=== PATIENT | male | born 1955 | race Caucasian/White ===

== ENCOUNTER 2018-02-10 21:17 | Observation (INO) | payer BC ==
[~2018-02-10] VITALS: Ht 180.3 cm; Wt 109.6 kg
[~2018-02-10 21:17] MED LIST: ALLERGY MED PO; BENADRYL25 MG PO; IBUPROFEN800 MG PO; KEFLEX500 MG PO; ULTRAM50 MG PO; VICODIN 5-3001 EACH PO
[2018-02-10 21:56] LABS: HEMATOCRIT 40.7 % (38.0-50.0); HEMOGLOBIN 13.8 G/DL (12.5-16.6); MCH 29.5 PG (29.0-34.0); MCHC 33.9 G/DL (30.0-36.0); PLATELET COUNT 270 K/uL (156-360); RBC DIS.WIDTH-CV 13.7 % (11.8-14.6); RED BLOOD COUNT 4.68 M/uL (4.00-5.50); WHITE BLOOD COUNT 8.5 K/uL (4.1-10.2)
[2018-02-10 22:05] LABS: APPEARANCE CLEAR ((CLEAR)); BILIRUBIN NEGATIVE; BLOOD SMALL; COLOR YELLOW ((YELLOW)); GLUCOSE (STRIP) NEGATIVE; KETONES NEGATIVE; LEUKOCYTES NEGATIVE; NITRITE NEGATIVE; PROTEIN (STRIP) NEGATIVE; SPECIFIC GRAVITY 1.019 (1.000-1.030); UROBILINOGEN 0.2 MG/DL (0.2-1.0)
[2018-02-10 22:09] LABS: BACTERIA NONE SEEN /HPF; EPITHELIAL CELLS NONE SEEN /HPF; HYALINE CASTS 0-5 /LPF; MUCUS TRACE /LPF; RED BLOOD CELLS 0-5 /HPF (0-5); UCUL ADDED? NO; WHITE BLOOD CELLS 0-5 /HPF (0-5)
[2018-02-10 22:10] LABS: CHLORIDE 106 mEq/L (99-109); POTASSIUM 4.2 mEq/L (3.7-5.4); SODIUM 139 mEq/L (136-147)
[2018-02-10 22:12] LABS: GLUCOSE 118 mg/dL (70-99)
[2018-02-10 22:15] LABS: CREATININE 1.6 mg/dL (0.6-1.3); GFR ESTIMATE (CALCULATED) 47 mL/min/ (58.99-99999)
[2018-02-10 22:16] LABS: UREA NITROGEN (BUN) 23 mg/dL (9-23)
[2018-02-11 03:55] VITALS: BP 142/77
[2018-02-11 05:35] LABS: HEMATOCRIT 38.9 % (38.0-50.0); HEMOGLOBIN 12.8 G/DL (12.5-16.6); MCH 29.1 PG (29.0-34.0); MCHC 32.9 G/DL (30.0-36.0); MCV 88.4 FL (86-99); PLATELET COUNT 256 K/uL (156-360); RBC DIS.WIDTH-CV 13.9 % (11.8-14.6); RBC DIS.WIDTH-SD 44.9 % (39-53); WHITE BLOOD COUNT 12.3 K/uL (4.1-10.2)
[2018-02-11 06:00] LABS: CHLORIDE 107 MEQ/L (99-109); CREATININE 1.6 MG/DL (0.6-1.3); GFR ESTIMATE (CALCULATED) 47 mL/min/ (58.99-99999); GLUCOSE 146 mg/dL (70-99); POTASSIUM 4.9 MEQ/L (3.7-5.4); SODIUM 140 MEQ/L (136-147); UREA NITROGEN (BUN) 22 mg/dL (9-23)
[2018-02-11 11:31] VITALS: BP 122/67
[2018-02-11 16:02] VITALS: BP 127/69
[2018-02-11 19:26] VITALS: BP 117/63
[2018-02-12 00:38] VITALS: BP 114/57
[2018-02-12 08:01] VITALS: BP 108/60
[2018-02-12 09:35] LABS: HEMOGLOBIN 11.8 G/DL (12.5-16.6); MCH 29.4 PG (29.0-34.0); MCHC 32.8 G/DL (30.0-36.0); MCV 89.8 FL (86-99); PLATELET COUNT 203 K/uL (156-360); RBC DIS.WIDTH-SD 45.7 % (39-53); RED BLOOD COUNT 4.01 M/uL (4.00-5.50); WHITE BLOOD COUNT 9.9 K/uL (4.1-10.2)
[2018-02-12 13:02] LABS: CHLORIDE 110 MEQ/L (99-109); CREATININE 1.3 MG/DL (0.6-1.3); GFR ESTIMATE (CALCULATED) > 59 mL/min/ (58.99-99999); POTASSIUM 4.1 MEQ/L (3.7-5.4); SODIUM 142 MEQ/L (136-147); UREA NITROGEN (BUN) 14 mg/dL (9-23)
[2018-02-12 13:08] LABS: GLUCOSE 85 mg/dL (70-99)
== END 2018-02-12 10:54 | disposition home or self-care (01) ==
LOC: EME 21:17 → EDOF 02-11 03:03 → 5WEST 02-11 03:03 → EDOF 02-11 03:03 → ENRESERV 02-11 03:04 → 5WEST 02-11 03:48
PROVIDERS: Hospitalist; Physician Assistant
DX: N13.2 Hydronephrosis with renal and ureteral calculous obstruction (principal); N17.9 Acute kidney failure, unspecified; D72.829 Elevated white blood cell count, unspecified; Z87.442 Personal history of urinary calculi
CPT/HCPCS: 74176; 80048; 81003; 85027; 99281; 99285; G0378; J1170; J2270; J2405; J3010; J7030